=== PATIENT | male | born 1995 | race Caucasian/White ===

== ENCOUNTER → 2018-09-11 | Outpatient (CLI) | payer SELFPAY ==
[~2018-09-11] MED LIST: Crutch1 EACH MISC; IBUP800 PO; Percocet 5-3251 EACH PO
== END | disposition home or self-care (01) ==
LOC: LAB SHORT 19:11 → LAB EV 19:11
DX: S60.455A Superficial foreign body of left ring finger, initial encounter (principal)
CPT/HCPCS: 87070; 87075; 87205

== ENCOUNTER → 2019-10-06 | Outpatient (CLI) | payer BC, OTHER | END | disposition home or self-care (01) | LOC: LAB EV 15:56 → LAB SHORT 15:56 | DX: J06.9 Acute upper respiratory infection, unspecified (principal); Z20.828 Contact with and (suspected) exposure to other viral communicable diseases | CPT/HCPCS: U0003 ==

== ENCOUNTER 2020-12-29 01:59 | Emergency (ER) | payer BC ==
[~2020-12-29] VITALS: Ht 182.9 cm; Wt 61.2 kg
== END 2020-12-29 04:35 | disposition home or self-care (01) ==
LOC: ER 01:59
DX: M25.532 Pain in left wrist (principal); F17.210 Nicotine dependence, cigarettes, uncomplicated; V00.131A Fall from skateboard, initial encounter
CPT/HCPCS: 29125; 73110; 99283-25